=== PATIENT | female | born 1980 | race Caucasian/White ===

== ENCOUNTER 2017-04-21 10:23 | Emergency (ER) | payer BC ==
--- NOTE | ~2017-04-21 | CR141 ---
[facility] A Service of [facility] & [facility] RADIOLOGY TEXT RESULTS PATIENT: DIANA EPPS LOCATION: SED : 80 UNIT #: [id number] AGE: [address]: YVETTE WELLS SEX: F ORDER DR: [id number] [address] [address] [id number] MR#: [id number] Acc #: [id number] NAME: DIANA EPPS. : 1980 SEX: F STUDY DATE/TIME: 04/21/2017 10:36 UNIT: SED ROOM: STUDY DESCRIPTION: CR Hand Min 3 Views Lt Attending Physician: Yvette Wells A.P.R.N. Ordering Physician: Yvette Wells A.P.R.N. Primary Care Physician: Frida Walsh M.D. MEDICAL IMAGING REPORT This report is preliminary unless electronic signature is present. EXAM Left hand 3 views 04/21/2017 1036 hours CLINICAL HISTORY Patient fell last week. 6-day history of hand and wrist pain and swelling along the radial aspect. COMPARISON Left wrist film 04/21/2017. FINDINGS AP, lateral and oblique views demonstrate no fracture, dislocation, or degenerative change in the hand. IMPRESSION Negative left hand. Dictated by... Miri Brownlee M.D. THIS IS AN ELECTRONICALLY VERIFIED REPORT Miri Brownlee M.D. at 04/21/2017 12:50 PM SAMUEL/desi TD: 04/21/2017 12:11 JOB #: [id number] MEDICAL IMAGING REPORT Page 1 of 1
--- NOTE | ~2017-04-21 | CR281 ---
[facility] A Service of [facility] & [facility] RADIOLOGY TEXT RESULTS PATIENT: DIANA EPPS LOCATION: SED : 80 UNIT #: [id number] AGE: [address]: YVETTE WELLS SEX: F ORDER DR: [id number] [address] [address] [id number] E MR#: [id number] Acc #: [id number] NAME: DIANA EPPS. : 1980 SEX: F STUDY DATE/TIME: 04/21/2017 10:39 UNIT: SED ROOM: STUDY DESCRIPTION: CR Wrist Min 3 View Lt Attending Physician: Yvette Wells A.P.R.N. Ordering Physician: Yvette Wells A.P.R.N. Primary Care Physician: Frida Walsh M.D. MEDICAL IMAGING REPORT This report is preliminary unless electronic signature is present. EXAM Left wrist, 3 views, 04/21/2017, 1039 hours. CLINICAL HISTORY Patient fell last week. Six-day history of pain and swelling at the hand and wrist along the radial aspect. COMPARISON None FINDINGS AP, lateral, and oblique views demonstrate normal bone density. The distal radius and ulna are intact. There is no carpal bone or metacarpal fracture. IMPRESSION Negative left wrist. Dictated by... Miri Brownlee M.D. THIS IS AN ELECTRONICALLY VERIFIED REPORT Miri Brownlee M.D. at 04/21/2017 12:50 PM SAMUEL/elayne TD: 04/21/2017 11:26 JOB #: [id number] MEDICAL IMAGING REPORT Page 1 of 1
[~2017-04-21 10:23] MED LIST: ATARAX PO; BACTRIM 400-801 TA1 PO; KEFLEX500 M2 PO; LOPRESSOR PO; MACROBID100 M1 PO; MOTRIN600 M1 PO; NIFEDICAL PO; NORMODYNE PO; PHENERGAN25 MG PO; WELLBUTRIN PO
[2017-04-21] MEDS ORDERED: PROZAC10 M1 (10:27)
== END 2017-04-21 11:18 | disposition home or self-care (01) ==
LOC: SED 10:23
DX: S63.92XA Sprain of unspecified part of left wrist and hand, initial encounter (principal); I10 Essential (primary) hypertension; W18.30XA Fall on same level, unspecified, initial encounter; Z88.5 Allergy status to narcotic agent
CPT/HCPCS: 29125; 73110; 73130; 99283